=== PATIENT | male | born 1950 | race Hispanic/Latino ===

== ENCOUNTER 2018-02-21 11:18 | Day surgery (SDC) | payer MEDICARE ==
[2018-02-20 16:13] VITALS: BMI 25.8
[2018-02-21 13:38] LABS: Hemoglobin 13.3 g/dL (14.0-18.0)
[2018-02-21] MEDS ORDERED: Lidocaine 1% w/Epinephrine 1:200K 30 ML VIAL ONE (14:34)
[2018-02-21] MEDS ORDERED: Bacitracin Zinc Ointment 30 gm TUBE ONE (14:34)
[2018-02-21] MEDS ORDERED: Fentanyl 100 MCG/2 ML VIAL ONE (14:46)
[2018-02-21] MEDS ORDERED: Lidocaine 1% PF 5 ML VIAL ONE (16:39)
[2018-02-21] MEDS ORDERED: Glycopyrrolate 0.2 MG/ML 5 ML SYRINGE ONE (16:39)
[2018-02-21] MEDS ORDERED: PHENYLEPHRINE-NS 100 MCG/ML 10 ML SYRINGE ONE (16:39)
[2018-02-21] MEDS ORDERED: PROPOFOL 200 MG/20 ML VIAL ONE (16:39)
--- NOTE | 2018-02-21 18:32 | OP ---
DATE OF PROCEDURE: 02/21/2018 PREOPERATIVE DIAGNOSIS: Deep left neck mass. POSTOPERATIVE DIAGNOSES: Deep left neck mass, possible lipoma. PROCEDURE PERFORMED: Excision of deep left neck mass measuring 8 cm. FINDINGS: The patient had a very large left deep neck mass below the platysma muscle along the great vessels and carotid sheath. PROCEDURE IN DETAIL: After consent was obtained, the patient was identified, brought to the operatin g room and placed on the table in supine position. General endotracheal anesthesia was obtained. Th e patient was positioned for surgery. The neck was turned and the patient was positioned, prepped an d draped for surgery. The skin was infiltrated with 1% lidocaine with 1:100,000 epinephrine. We the n incised the skin and carried down through the subcutaneous tissues and the subcutaneous fat. We th en continued our incision down through the platysma. We then encountered a light colored fatty mass which was dissected from the surrounding fascia in the deep space. It was adherent to the inferior a spect of the submandibular gland and the carotid sheath. Dissection of that allowed for isolation of the jugular vein. Hemostasis was then obtained. The wound was closed in layers with Monocryl to cl ose the platysma and a running nylon for the skin. Sterile dressing was applied. The patient was aw akened and taken to recovery where he remained in stable condition prior to discharge home.
--- NOTE | 2018-02-22 06:57 | EKG ---
Test Reason : PREOP Blood Pressure : / mmHG Vent. Rate : 069 BPM Atrial Rate : 069 BPM P-R Int : 128 ms QRS Dur : 092 ms QT Int : 416 ms P-R-T Axes : 071 000 049 degrees QTc Int : 445 ms Normal sinus rhythm Normal ECG When compared with ECG of 29-JAN-2014 15:46, Criteria for Septal infarct are no longer Present Confirmed by BRENDA SHANKS ([id number]) on 02/22/2018 6:57:25 AM Referred By: GARRETT Confirmed By:BRENDA SHANKS
== END 2018-02-21 17:42 | disposition home or self-care (01) ==
LOC: SDC 11:18
PROVIDERS: ATTEND Specialist
PROC: 0JB50ZZ Excision of Left Neck Subcutaneous Tissue and Fascia, Open Approach (ICD-10-PCS; principal; 2018-02-21)
DX: D17.0 Benign lipomatous neoplasm of skin and subcutaneous tissue of head, face and neck (principal); H91.93 Unspecified hearing loss, bilateral; J45.909 Unspecified asthma, uncomplicated; Z87.891 Personal history of nicotine dependence; Z79.84 Long term (current) use of oral hypoglycemic drugs; Z79.899 Other long term (current) drug therapy
CPT/HCPCS: 85014; 85018; 88304; 93005; 93010; J2001; J2704; J3010

== ENCOUNTER 2018-08-20 08:06 | Outpatient (CLI) | payer MEDICARE ==
--- NOTE | 2018-08-20 09:48 | CT ---
CT PULMONARY LUNG SCAN: INDICATIONS: Cancer screening. A 67-year-old male with a history of smoking. COMPARISON: None. FINDINGS: There is moderate centrilobular emphysema. No suspicious pulmonary nodule is evident. No confluent air space opacity is noted. There is nonspecific mildly prominent mediastinal lymph nodes. The larg est is seen within the precarinal region, measuring 0.3 cm. There are mildly prominent lymph nodes w ithin the prevascular region and AP window. There are coronary artery and thoracic aorta calcificati ons. The visualized upper abdomen reveals no acute abnormality. At T11-T12, there is a left paracen tral calcified extraaxial lesion projecting into the spinal canal, causing at least moderate osseous central canal narrowing, best seen on image 102 of the sagittal series and image 204 of the axial ser ies. Findings are suspicious for a large, calcified, herniated disk or possibly a small meningioma. There is multilevel spondylosis of the thoracic spine. IMPRESSION: Lung-RADS category 1-Negative. Recommend annual low dose cancer CT screening evaluation. Category S: Left paracentral extraaxial calcified spinal canal mass at T11-T12, causing moderate rachael tral canal narrowing, which may reflect an extraaxial calcified herniated disk or possibly a small me ningioma. There is coronary artery and thoracic aorta calcifications. There are nonspecific mildly prominent mediastinal lymph nodes. CODE LN POS: [facility]
== END 2018-08-20 08:07 | disposition home or self-care (01) ==
LOC: CT 08:06
PROVIDERS: ATTEND Family Medicine
DX: Z12.2 Encounter for screening for malignant neoplasm of respiratory organs (principal); Z00.00 Encounter for general adult medical examination without abnormal findings; Z87.891 Personal history of nicotine dependence
CPT/HCPCS: G0297

== ENCOUNTER 2018-10-02 08:14 | Outpatient (CLI) | payer MEDICARE ==
--- NOTE | 2018-10-02 11:05 | MRI ---
MRI LUMBAR SPINE NONCONTRAST: DATE: 10/02/2018. HISTORY: A 67-year-old male with R29.989, left lower extremity weakness. Low back pain and left lumbar radicu lopathy. COMPARISON: None. FINDINGS: There are 5 lumbar-type vertebrae. The vertebral body heights are maintained. No major bone marrow signal abnormality. T11-12: Moderate disk space narrowing. A large left paracentral disk-osteophyte complex protrudes f ar into the left side of the spinal canal. It occupies 2/3 of the anteroposterior dimension of the s scotty canal, and occupies approximately 20-40% of the cross-section area of the spinal canal. It has a sharp posterior tip that distorts and displaces the lower portion of the spinal cord. There is no neural foraminal stenosis. T12-L1: The conus medullaris terminates at this level. Essentially normal. L1-2: Mild disk bulge. No central or neural foraminal stenosis. L2-3: Disk bulge. Mild central stenosis. No neural foraminal stenosis. Disk space maintained. L3-4: Mild disk space narrowing. Prominent diffuse disk bulge. Mild bilateral neural foraminal yanci nosis, left greater than right. Mild ligamentum flavum thickening and mild bilateral degenerative fa cet changes. Mild to moderate central spinal canal stenosis. L4-5: Mild to moderate disk space narrowing. Slight degenerative retrolisthesis of L4 on L5. Promi nent diffuse disk bulge. Moderate bilateral degenerative facet changes. Moderate bilateral neural f oraminal stenosis, right worse than left. Moderate central spinal canal stenosis. L5-S1: Bilateral L5 pars interarticularis defects cause a prominent grade I anterolisthesis of L5 on S1. Large diffuse disk bulge. All of these factors result in severe right neural foraminal stenosi s, with chronic impingement and deformation of the exiting right L5 nerve root, moderate to severe le ft neural foraminal stenosis, also with chronic deformation and impingement on the exiting left L5 ne rve root, and moderate central spinal canal stenosis. Severe narrowing of the posterior aspect of th e disk space. IMPRESSION: 1. Bilateral L5 spondylolysis causing prominent grade I spondylolisthesis at L5-S1, and high-grade b ilateral neural foraminal stenosis with chronic impingement on the bilateral exiting L5 nerve roots. 2. Large focal osteophyte or disk-osteophyte complex at T11-12 chronically impinging on the lower sp inal cord. TRACIE Owusu POS: [facility]
== END 2018-10-02 08:15 | disposition home or self-care (01) ==
LOC: BICMRI 08:14
PROVIDERS: ATTEND Physician Assistant
DX: R29.2 Abnormal reflex (principal); R29.898 Other symptoms and signs involving the musculoskeletal system; M47.816 Spondylosis without myelopathy or radiculopathy, lumbar region; M48.061 Spinal stenosis, lumbar region without neurogenic claudication; M43.17 Spondylolisthesis, lumbosacral region
CPT/HCPCS: 72148

== ENCOUNTER 2018-10-23 13:09 | Outpatient (CLI) | payer MEDICARE ==
--- NOTE | 2018-10-23 14:41 | RAD ---
LUMBAR SPINE THREE VIEWS INCLUDING FLEXION AND EXTENSION VIEWS: 10/23/2018 HISTORY: Lumbar radiculopathy. Low back pain with pain radiating down the left leg for one year. COMPARISON: MRI lumbar spine from 10/02/2018. FINDINGS: There are five [id number] lumbar type vertebral bodies, based on sagittal imaging. As noted on the prior MRI examination, there is grade 1 anterolisthesis of L5 on S1, with bilateral pars defects present. There are degenerative changes seen in the lumbar spine, with multilevel osteophytes presen t, and there is narrowing of the intervertebral disk spaces in the lower lumbar spine. There is trac e retrolisthesis of L4 on L5. There is no abnormal translational motion seen between the flexion and extension views of the lumbar spine. Vascular calcification is seen in the abdominal aorta. IMPRESSION: Degenerative changes of the lumbar spine, greatest in the lower lumbar spine. There is evidence of s pondylolisthesis at the lumbosacral junction with slight retrolisthesis of L4 on L5. POS: [facility]
== END 2018-10-23 13:10 | disposition home or self-care (01) ==
LOC: TBSIIMAG 13:09
PROVIDERS: ATTEND Neurological Surgery
DX: M47.26 Other spondylosis with radiculopathy, lumbar region (principal); M43.17 Spondylolisthesis, lumbosacral region; M43.16 Spondylolisthesis, lumbar region
CPT/HCPCS: 72100

== ENCOUNTER 2018-11-26 05:39 | Inpatient (IN) | payer MEDICARE ==
[2018-11-25 17:29] VITALS: BMI 26.6
--- NOTE | 2018-11-26 01:59 | HP ---
HISTORY OF PRESENT ILLNESS: Mr. Lynn is a 68-year-old male, who reports to our office for evaluation of low back pain with left lower extremity pain. The patient states over the last few days he had pain in the left gluteus on and off. The patient felt that it was due to having his wallet in his left side back pocket; however, moving it back and forth does not seem to make any difference. The patient walks with a limp on the left side. He states that he has pain down the back side of his thighs to his knees, lateral aspect of his lower extremities, and into his foot and baby toe. The patient states that he has not been sleeping well. He turned repeatedly overnight. He was taking aspirin and Tylenol. Denies physical therapy or injections. REVIEW OF SYSTEMS: A 10-point review of systems has been completed and is negative other than stated in the above HPI. PAST MEDICAL HISTORY: Asthma, diabetes, hypertension, and hyperlipidemia. PAST SURGICAL HISTORY: Excision of left neck mass and . FAMILY HISTORY: Father was at 93 years. Mother was at 91 years, diagnosed with diabetes. Siblings are alive, diagnosed with diabetes. Six brothers, 3 sisters. SOCIAL HISTORY: The patient is a former smoker, quit smoking in 2009, smoked approximately a pack a day for 30 plus years. Alcohol, he uses occasional alcohol. Denies any drug use. He does concrete and sands work. Drinks caffeine. MEDICATIONS: 1. Metformin. 2. Atorvastatin. 3. Lisinopril. 4. Glimepiride. 5. Tramadol. ALLERGIES: NO KNOWN DRUG ALLERGIES. PHYSICAL EXAMINATION: CONSTITUTIONAL: Well appearing, well nourished, alert. NEUROLOGIC: Mental status; oriented to time, place, and person. Normal attention span and concentration. Speech is spontaneous and fluent. Comprehension is intact, content appropriate. Normal fund of knowledge. Cranial nerves; pupils are equal, round, and reactive to light. Extraocular movements are intact. Hearing is intact. Cranial nerves II through XII are grossly intact. Motor; muscle strength normal in lower extremities. Muscle tone normal and bulk normal in lower extremities. A 5/5 bilateral strength in IP, KF, DF, PF; 3/5 left knee extension, 4/5 left EHL, S1 radiculopathy. Positive single leg raise on the right. Rotation of bilateral hips normal. Tender to palpation of left piriformis. Deep tendon reflexes; no patellar reflex on left. Sensory; light touch intact. Gait and station; sit to stand slow. Left leg limp with gait. RESPIRATIONS: Normal work of breathing on room air. CARDIAC: Regular rate and rhythm. Normal S1 and S2. IMAGING: MRI of the lumbar spine, T11-T12 large osteophyte protrudes into the spinal canal, L3-L4 and L4-L5 stenosis. L5-S1 listhesis. ASSESSMENT AND PLAN: Lumbar spinal stenosis with neurogenic claudication, spondylolisthesis of the lumbar region, and lumbar radiculopathy. Dr. Diaz has offered surgery. The patient states that he understands the risks of surgery, and is willing to proceed. Job ID: [id number]
[2018-11-26] MEDS ORDERED: CEFAZOLIN 2 GM/50 ML BAG ONE (06:05)
[2018-11-26] MEDS ORDERED: Thrombin 5000 UNITS/5 ML VIAL ONE (06:17)
[2018-11-26] MEDS ORDERED: Sodium Chloride 0.9% 30 ML ONE (06:17)
[2018-11-26] MEDS ORDERED: Bupivacaine HCl 0.5%/Epinephrine 1:200,000/PF 30 ml Vial ONE (06:17)
[2018-11-26] MEDS ORDERED: Fentanyl 100 MCG/2 ML VIAL ONE ×4 (06:19→16:54)
[2018-11-26 06:26] LABS: #Basophils 0.1 thou/uL (0.0-0.2); #Eosinphils 0.7 thou/uL (0.0-0.7); #Lymphocytes 2.7 thou/uL (1.20-3.40); #Monocytes 0.8 thou/uL (0.11-0.59); %Basophils 1.1 % (0.0-1.0); %Eosinophils 7.7 % (0.0-10.0); %Lymphocytes 29.1 % (21.0-51.0); %Monocytes 8.3 % (0.0-10.0); %Neutrophils 53.8 % (42.0-75.0); Mean Corpuscular HGB CONC 35.1 g/dL (32.0-36.0); Mean Corpuscular Hemoglobin 32.3 pg (27.0-31.0); Mean Corpuscular Volume 91.9 fL (78.0-98.0); Mean Platelet Volume 7.1 fL (7.4-10.4); Platelet Count 366 thou/uL (130-400); RBC Distribution Width 11.8 % (11.5-14.5); Red Blood Cell (RBC) Count 4.64 mill/uL (4.70-6.10); White Blood Cell (WBC) Count 9.3 thou/uL (4.8-10.8)
[2018-11-26 06:31] LABS: PTT 27.7 SEC (22.9-36.1); Prothrombin Time 13.1 SEC (12.0-14.7)
[2018-11-26] MEDS ORDERED: PHENYLEPHRINE-NS 100 MCG/ML 10 ML SYRINGE ONE ×7 (08:08→14:34)
[2018-11-26] MEDS ORDERED: Rocuronium Bromide 50 MG/5 ML VIAL ONE (11:24)
[2018-11-26] MEDS ORDERED: diphenhydrAMINE 25 MG CAP PO PRN (14:08)
[2018-11-26] MEDS ORDERED: Milk Of Magnesia 30 ML UDCUP PO PRN (14:08)
[2018-11-26] MEDS ORDERED: Acetaminophen 325 MG TAB PO PRN (14:08)
[2018-11-26] MEDS ORDERED: Bisacodyl 10 MG SUPP PR PRN (14:08)
[2018-11-26] MEDS ORDERED: Promethazine 25 MG TAB PO PRN (14:08)
[2018-11-26] MEDS ORDERED: Promethazine HCl 25 MG/ML VIAL IM PRN ×2 (14:08→14:23)
[2018-11-26] MEDS ORDERED: Ondansetron PF 4 MG/2 ML Vial IVP PRN (14:08)
[2018-11-26] MEDS ORDERED: tiZANidine HCl 4 MG TAB PO PRN (14:08)
[2018-11-26] MEDS ORDERED: Morphine 4 MG/ML VIAL SLOW IVP PRN (14:08)
[2018-11-26] MEDS ORDERED: Acetaminophen 650 MG Suppository PR PRN (14:08)
[2018-11-26] MEDS ORDERED: diphenhydrAMINE 50 MG/ML VIAL IVP PRN (14:08)
[2018-11-26] MEDS ORDERED: Mag-Al 1200 mg/1200 mg/30 ML UDCUP PO PRN (14:08)
[2018-11-26] MEDS ORDERED: Acetaminophen/Codeine 30-300mg Tablet PO PRN (14:08)
[2018-11-26] MEDS ORDERED: Morphine 2 MG/ML SYRINGE SLOW IVP PRN (14:08)
[2018-11-26] MEDS ORDERED: traMADol HCl 50 MG TAB PO PRN (14:13)
[2018-11-26] MEDS ORDERED: CEFAZOLIN/Water 2 GM/20 ML SYRINGE SLOW IVP SCH (14:15)
[2018-11-26] MEDS ORDERED: Promethazine HCl 25 MG/ML VIAL SLOW IVP PRN (14:23)
[2018-11-26] MEDS ORDERED: Ondansetron HCl/PF 4 MG/2 ML Vial IVP PRN (14:23)
[2018-11-26] MEDS ORDERED: Glycopyrrolate 0.2 MG/ML 5 ML SYRINGE ONE (14:34)
[2018-11-26] MEDS ORDERED: ePHEDrine/0.9% NaCl/PF SYRINGE 50 mg/10 ml ONE (14:34)
[2018-11-26] MEDS ORDERED: Lidocaine 1% PF 5 ML VIAL ONE (14:34)
[2018-11-26] MEDS ORDERED: Rocuronium Bromide 10 MG/ML (10ML VIAL) ONE (14:34)
[2018-11-26] MEDS ORDERED: Ondansetron PF 4 MG/2 ML Vial ONE (14:34)
[2018-11-26] MEDS ORDERED: Ketorolac Tromethamine 30 MG/ML VIAL ONE (14:34)
[2018-11-26] MEDS ORDERED: PROPOFOL 200 MG/20 ML VIAL ONE (14:34)
[2018-11-26] MEDS ORDERED: CEFAZOLIN 2 GM/50 ML-DEXTROSE 2 GM in Premix Bag 1 BAG IVPB SCH (15:00)
[2018-11-26] MEDS: metFORMIN 500 MG TAB PO SCH (18:31)
[2018-11-26] MEDS: Sodium Chloride 0.9% 1,000 ML IV SCH (18:36)
--- NOTE | 2018-11-26 19:51 | OP ---
DATE OF PROCEDURE: 11/26/2018 WELDING MACHINE OPERATOR/TENDER: Stefania Osborn PA-C. PREOPERATIVE INDICATION: Treat pain and prevent neurological deterioration. PREOPERATIVE DIAGNOSES: Gait instability, left leg weakness, intervertebral disk herniation at T11-T12 with cord compression, lateral recess stenosis at L4-L5, and spondylolisthesis with severe foraminal disease at L5-S1. POSTOPERATIVE DIAGNOSES: Gait instability, left leg weakness, intervertebral disk herniation at T11-T12 with cord compression, lateral recess stenosis at L4-L5, and spondylolisthesis with severe foraminal disease at L5-S1. PROCEDURES PERFORMED: 1. Partial costotransversectomy, partial pediculectomy, and left-sided microdiskectomy at T11-T12. 2. Decompressive laminectomy, medial facetectomy, foraminotomy at L4-L5; removal of abnormal posterior elements including complete facetectomy at L5-S1 (Walls type procedure); transforaminal lumbar interbody arthrodesis and placement of intervertebral biomechanical device at L5-S1; pedicle screw and beatrice instrumentation at L5-S1; posterolateral arthrodesis at L5 and S1; local morselized autograft, morselized allograft; and operating microscope. PREOPERATIVE MEDICATION: Ancef 2 g IV. DRAINS: Zero. DRAIN TYPE: None. DESCRIPTION OF PROCEDURE: The patient was brought to the operating room. General endotracheal anesthesia was induced. The patient was positioned prone on the Petar frame with the appropriate padding for the chest and hips. A lateral fluoro radiograph was used to plan 2 incisions, one would give us access to T11-T12 and the other from L4 through S1. The thoracolumbar skin was sterilely prepped and draped. We started with our thoracic incision, opened with a 10 blade knife. We placed a self-retaining retractor and dissected carefully to the thoracodorsal fascia. We incised the fascia in the midline and reflected the paraspinal muscles off the spinous process, lamina, and transverse process of T11 and T12. A self-retaining retractor was placed and a lateral fluoro radiograph was used to confirm the level upon which we were operating. We then brought a high-speed drill into the field. We drilled away a portion of the transverse process and head of the rib at T11-T12 and at T10-T11. We then thinned the lamina and removed the spinous process and performed 2/3 laminectomy, opening from just right of the midline all the way over to the pars interarticularis on the left. We performed medial facetectomy at both levels. We drilled away the medial portion of the pedicle at T12. We took an angled approach onto the dura to the disk space. Even in the far lateral recess, there was a protruding portion of the disk that was calcified, but more medially became markedly more prominent. We carefully used a high-speed drill, starting lateral to the dura and drilled away the interspace. We drilled at least 3 to 5 mm into the vertebral bodies and worked our way medially under the osteophyte. Using the pushing curette, we reduced portions of these calcified disk into the drilled bone and removed them in a piecemeal fashion laterally onto the dura. Finally, we could visualize the medial portion of the calcified disk. We drilled into more medial to it and then used a 1 mm Kerrison rongeur to amputate the calcified disk. This was densely adherent to the dura and as we swept it laterally, we noticed that it was adhered to the arachnoid as well. A bleb of arachnoid was seen from the ventral surface of the dura. We removed the disk and there was a small amount of CSF leak. We placed a Gelfoam in the lateral recess, two small pledgets of Gelfoam controlled the CSF. We irrigated copiously with bacitracin irrigation. We used DuraSeal tissue sealant to reinforce Gelfoam across the entire area of exposed dura. We then closed our thoracic incision in layers in a watertight fashion. For this portion of the procedure, the operative microscope and microsurgical techniques were used for the drilling and removal of the disk. We opened the second incision. We opened our planned lumbar incision with a 10 blade knife and controlled bleeding with bipolar cautery. We dissected sharply to the thoracodorsal fascia, incised in the midline, and reflected the paraspinal muscles off the spinous process and lamina of L4, L5 and S1. Self-retaining retractor was placed. A lateral fluoro radiograph confirmed the levels upon which we were operating. We then carried our dissection over the facet joint at L4-L5 and L5-S1 to identify the sacral ala and the transverse processes of L5 on both sides. We irrigated with bacitracin irrigation. We began our decompression, but noticed the posterior elements of L5 were completely loose. These were removed in large pieces including complete facetectomies on both sides. At L4, we performed a laminectomy with a 3 mm Kerrison rongeur, and we widened our laminectomy defect at the interspace. We undermined both lateral recesses by performing medial facetectomies until we could identify the L5 nerve roots, and we performed foraminotomies over these roots. In similar fashion, we performed medial facetectomies and foraminotomies over the S1 roots. We irrigated with bacitracin irrigation. We then brought a high-speed drill into the field and drilled off the superior articular process of L5 above the pedicles. We worked away down in the foramen until we identified the L5 nerve roots lateral to the spinal canal, and we removed disk material, osteophytes, and drilled away bone until these nerve roots were no longer compressed at all. A Quinones ball could pass out the foramen into the paraspinal space without impingement on either side. We irrigated once more with bacitracin irrigation and turned our attention to arthrodesis. Through the foramen on the left side, we accessed the intervertebral space. We incised it with an 11 blade knife and we removed disk contents using curettes and rongeurs. We prepared the endplates for grafting with angled curette with upward and downward facing curettes and loop curettes. We measured the height of the interspace with a rectangular shaped bone rasp to 10 mm. A 10 mm PEEK intervertebral graft was brought into the field. This intervertebral device was loaded with demineralized bone matrix and morselized autograft. The autograft was obtained from a laminectomy bone, which was carefully cleaned of its soft tissue attachments, morselized, and added to DBM as our fusion substrate. The PEEK device was advanced into the lumbosacral interspace to the appropriate depth under radiographic guidance. We turned our attention to pedicle screw instrumentation. Using bony anatomic landmarks, palpation of the medial portion of the pedicles, and a lateral fluoro radiograph as our guide, we chose entry points for pedicle screws at L5 and S1. We advanced a bone awl through the pedicles into the vertebral bodies. We tapped each trajectory and then probed the trajectories. We found them completely encased in bone. We placed 6.5 mm diameter pedicle screws at L5 and S1 bilaterally. A 360-degree image set was generated with our isocentric C-arm, confirming adequate positioning of our instrumentation. We then irrigated with bacitracin irrigation. Rods were dropped down into the screw heads and caps tightened over the rods. We used gentle compression across the interspace to keep the interbody graft in place. We ensured each foramen was still widely patent. Using a torque/counter-torque mechanism, we ensured adequate tightness. We decorticated the transverse process of L5 and the sacral ala on either side. Over the decorticated bone, we left demineralized bone matrix and morselized autograft as our posterolateral fusion substrate. We irrigated the center of the wound one more time with bacitracin irrigation. We infused local anesthetic in the paraspinal muscles and we closed in anatomical layers. We treated the wound with vancomycin powder before closing. This is clean case, no contamination. Job ID: [id number]
[2018-11-26] MEDS: CEFAZOLIN 2 GM/50 ML-DEXTROSE 2 GM in Premix Bag 1 BAG IVPB SCH (20:34)
[2018-11-27] MEDS: Acetaminophen/Codeine 30-300mg Tablet PO PRN ×4 (01:01→21:53)
[2018-11-27] MEDS: CEFAZOLIN 2 GM/50 ML-DEXTROSE 2 GM in Premix Bag 1 BAG IVPB SCH (04:40)
[2018-11-27] MEDS: Sodium Chloride 0.9% 1,000 ML IV SCH ×2 (04:40→18:01)
[2018-11-27] MEDS: Tamsulosin HCl 0.4 MG CAP PO SCH (04:44)
[2018-11-27] MEDS: metFORMIN 500 MG TAB PO SCH ×2 (07:50→18:16)
[2018-11-27] MEDS: Glimepiride 2 MG TAB PO SCH (07:51)
[2018-11-27] MEDS: Atorvastatin Calcium 40 MG TAB PO SCH (07:51)
[2018-11-27] MEDS: Lisinopril 10 MG TAB PO SCH (07:51)
--- NOTE | 2018-11-27 09:10 | PRG ---
DATE OF SERVICE: 11/27/2018 Mr. Lynn is one day out from a calcified thoracic diskectomy as well as a lumbar and lumbosacral decompression with lumbosacral fusion. Mr. Lynn's operative intervention was notable for calcified thoracic disk eroded through the dura, so we noticed a ventral CSF leak and this was reinforced with Gel-Foam and DuraSeal. Thankfully, Mr. Lynn has good neurologic function in his lower extremities. He has a bit of numbness in the S1 distribution down the left leg, but we used copious amounts of local anesthetic around those nerves while manipulating for his fusion. There were no fevers recorded overnight and his other vital signs are stable. There is excellent motor function in both lower extremities. There is decreased sensation and paresthesias in the S1 greater than L5 distribution in the left leg, but nothing more proximal. My plan for Mr. Lynn is to consult Medicine for diabetes management, consult Physical Therapy, consider inpatient rehabilitation placement, and get him fitted with at least an LSO brace. Job ID: [id number]
[2018-11-28] MEDS: Tamsulosin HCl 0.4 MG CAP PO SCH (05:19)
[2018-11-28] MEDS: Acetaminophen/Codeine 30-300mg Tablet PO PRN ×3 (05:19→14:29)
[2018-11-28] MEDS: Sodium Chloride 0.9% 1,000 ML IV SCH (06:51)
--- NOTE | 2018-11-28 08:44 | PRG ---
DATE OF SERVICE: 11/28/2018 NEUROSURGERY PROGRESS NOTE Mr. Lynn is 2 days out from a thoracic and lumbar decompression with a lumbosacral fusion. He had a reasonable day yesterday. He was fitted for his brace, which he is still wearing in bed currently. He got up and walked in the hallways. He was able to void spontaneously. He is very happy with his progress thus far and he tells me his leg pain is better than before surgery. There is still some residual numbness what seems to be an L5 or S1 distribution, but even that is getting better. There is no recorded fever on his vital signs. Blood pressures have been in the 120s to 130s. On examination, there is good strength in both lower extremities. There is some residual numbness in left S1 greater than L5. This morning, his blood glucose is 142. I believe Mr. Lynn is safe for discharge. He will need a bit more practice with Physical Therapy this morning, getting into and out of bed. He does not have to wear his brace when he is in bed. He can put his brace on when he is up. We will make arrangements for him to be seen in the office in 2 weeks. We went over wound care and home going activity restrictions. He verbalized his understanding. Job ID: [id number]
[2018-11-28] MEDS: metFORMIN 500 MG TAB PO SCH (09:04)
[2018-11-28] MEDS: Glimepiride 2 MG TAB PO SCH (09:04)
[2018-11-28] MEDS: Lisinopril 10 MG TAB PO SCH (09:04)
[2018-11-28] MEDS: Atorvastatin Calcium 40 MG TAB PO SCH (09:04)
[2018-11-28 11:48] VITALS: BP 142/64; TEMP 98.3
--- NOTE | 2018-11-29 20:27 | EKG ---
Test Reason : PREOP Blood Pressure : / mmHG Vent. Rate : 068 BPM Atrial Rate : 068 BPM P-R Int : 142 ms QRS Dur : 088 ms QT Int : 420 ms P-R-T Axes : 079 017 048 degrees QTc Int : 446 ms Normal sinus rhythm Normal ECG When compared with ECG of 21-FEB-2018 13:00, No significant change was found Confirmed by Anais JONAS ([id number]) on 11/29/2018 8:27:43 PM Referred By: MOON Confirmed By:Anais JONAS
== END 2018-11-28 15:30 | disposition home or self-care (01) | DRG 460 ==
LOC: SURG A 05:39 → 3SE 18:16
PROVIDERS: ADMIT Neurological Surgery; ATTEND Neurological Surgery
PROC: 0SG30AJ Fusion of Lumbosacral Joint with Interbody Fusion Device, Posterior Approach, Anterior Column, Open Approach (ICD-10-PCS; principal; 2018-11-26)
PROC: 0PB10ZZ Excision of 1 to 2 Ribs, Open Approach (ICD-10-PCS; 2018-11-26)
PROC: 0RB90ZZ Excision of Thoracic Vertebral Disc, Open Approach (ICD-10-PCS; 2018-11-26)
PROC: 01N80ZZ Release Thoracic Nerve, Open Approach (ICD-10-PCS; 2018-11-26)
PROC: 00QT0ZZ Repair Spinal Meninges, Open Approach (ICD-10-PCS; 2018-11-26)
PROC: 01NB0ZZ Release Lumbar Nerve, Open Approach (ICD-10-PCS; 2018-11-26)
PROC: 0SB40ZZ Excision of Lumbosacral Disc, Open Approach (ICD-10-PCS; 2018-11-26)
PROC: 00NY0ZZ Release Lumbar Spinal Cord, Open Approach (ICD-10-PCS; 2018-11-26)
DX: M48.062 Spinal stenosis, lumbar region with neurogenic claudication (principal); G96.0 Cerebrospinal fluid leak; M43.16 Spondylolisthesis, lumbar region; J45.909 Unspecified asthma, uncomplicated; E11.9 Type 2 diabetes mellitus without complications; I10 Essential (primary) hypertension; E78.5 Hyperlipidemia, unspecified; M51.14 Intervertebral disc disorders with radiculopathy, thoracic region; Z79.84 Long term (current) use of oral hypoglycemic drugs; Z87.891 Personal history of nicotine dependence; Z83.3 Family history of diabetes mellitus
CPT/HCPCS: 36416; 76000; 85025; 85610; 85730; 93005; 93010; C1713; C1768; J0131; J0670; J1885; J2001; J2405; J2704; J3010; J3370; J3490

== ENCOUNTER 2019-01-10 13:27 | Outpatient (CLI) | payer MEDICARE ==
--- NOTE | 2019-01-10 15:17 | RAD ---
LUMBAR SPINE SERIES TWO VIEWS: HISTORY: Back pain. COMPARISON: 10/23/2018 FINDINGS: Vertebral bodies are normal in height. Prominent osteophytic changes are seen. Mild disk narrowing at L3-L4. Moderate disk narrowing at L4-L5. More superior disk narrowing at L5-S1. The patient has had bilateral pedicle screws placed at the L5-S1 level, with laminectomy change. Markers of disk im plants are seen within the confines of the disk level and along the anterior-most margin of the disk level. There is a spondylolisthesis of approximately 10 mm. IMPRESSION: Arthritic changes and postoperative changes of the spine. POS: [facility]
== END 2019-01-10 13:28 | disposition home or self-care (01) ==
LOC: TBSIIMAG 13:27
PROVIDERS: ATTEND Neurological Surgery
DX: M47.26 Other spondylosis with radiculopathy, lumbar region (principal); M43.16 Spondylolisthesis, lumbar region
CPT/HCPCS: 72100

== ENCOUNTER 2019-03-06 09:24 | Outpatient (CLI) | payer MEDICARE ==
--- NOTE | 2019-03-06 09:55 | RAD ---
RIGHT FOOT RADIOGRAPHS 3 VIEWS: DATE: 03/06/2019. PROVIDED CLINICAL HISTORY: Right foot pain. FINDINGS: No evidence for fracture or other acute osseous abnormality. Alignment appears anatomic. Joint spac es appear preserved. Small plantar calcaneal enthesophyte. IMPRESSION: No evidence for an acute osseous abnormality or significant arthropathy. POS: [facility]
== END 2019-03-06 09:25 | disposition home or self-care (01) ==
LOC: BICRAD 09:24
PROVIDERS: ATTEND Family Medicine
DX: M79.671 Pain in right foot (principal)

== ENCOUNTER 2019-08-21 08:50 | Outpatient (CLI) | payer MEDICARE ==
--- NOTE | 2019-08-21 11:07 | ULT ---
ABDOMINAL AORTIC ULTRASOUND: HISTORY: Abdominal aortic aneurysm screening. FINDINGS: Real-time imaging of the abdominal aorta shows normal caliber aorta. The proximal portion of the aor ta was not visualized due to bowel gas; however, the mid portion of the aorta measured 1.9 and the di stal ileum 0.8 cm. Iliacs were normal in caliber. IMPRESSION: No evidence of aortic aneurysm. Very proximal aorta is not visualized. POS: [facility]
--- NOTE | 2019-08-21 11:14 | CT ---
CT CHEST WITHOUT CONTRAST: Axial tomograms obtained through the chest following a low-dose screening protocol. COMPARISON: Comparison is made to low-dose screening chest CT 08/20/2018. INDICATION: Long history of nicotine dependent/smoking. FINDINGS: The lungs show hyperexpansion consistent with COPD. Mild stranding. Early sensor lobar emphysematou s changes in the lung bases. No evidence of pulmonary mass or nodule. No evidence of infiltrate or effusion. There is an enlarged mediastinal lymph node seen in the paratracheal region measuring 1.6 cm which is stable from the prior study. There are other nonspecific mediastinal lymph nodes which are also sta ble. Osseous structures unremarkable with degenerative spine changes. The patient has undergone perez inectomy at T11-T12 on the left since the prior study. IMPRESSION: Lung RADS 2. Recommend continued annual low-dose screening CT. POS: [facility]
== END 2019-08-21 08:51 | disposition home or self-care (01) ==
LOC: CT 08:50
PROVIDERS: ATTEND Family Medicine
DX: Z13.6 Encounter for screening for cardiovascular disorders (principal); Z87.891 Personal history of nicotine dependence
CPT/HCPCS: 76775; G0297

== ENCOUNTER 2020-10-27 09:37 | Outpatient (CLI) | payer MEDICARE ==
--- NOTE | 2020-10-27 10:45 | CT ---
CT pulmonary lung scan without IV contrast INDICATION: Lung cancer screening protocol; 70-year-old male with history of being a former smoker; q uit 12 years ago and smoked approximately 1 pack per day or less.personal history of smoking COMPARISON: Prior CT pulmonary lung scan dated August 21, 2019 and August 20, 2018 FINDINGS: LUNGS: Nodules\mass: There is a new subpleural pulmonary nodule involving the right posterior lower lobe on image 91 of series 3 measuring 9 mm with an adjacent area of pleural thickening. This may reflect a small focus of rounded atelectasis. There are numerous areas of peripheral subpleural interstitial thickening with associated bronchiectasis that has developed in the interim suspicious for sequela of prior pneumonia with resultant fibrosis. There are prominent areas of fibrosis with traction bronc hiectasis involving the right lower lobe, right upper lobe and right middle lobe. Overall the findings are suspicious for sequela of healed fibrotic change from Covid pneumonia. Emphysema: There is scattered moderate emphysema Additional findings: There is a stable 1.3 cm pretracheal lymph node. No pathologically enlarged lymp h nodes are evident. Mediastinum: There are coronary artery and thoracic aortic calcifications. Upper abdomen: There is a 7 cm cyst within superior pole the right kidney. Osseous structures: There is postsurgical change of a left hemilaminectomy at T11. Right renal. IMPRESSION: Lung-RADS Category 3: Probably Benign-6-[address] of the Thorax follow up recommended. There are numerous subpleural reticular opacities within both lungs suspicious for areas of interstit ial fibrosis with associated traction bronchiectasis. This is suspicious for sequela of prior Covid pneumonia. There are more prominent areas of new fibrosis and traction bronchiectasis within the righ t lower lobe, right middle lobe and left upper lobe. There is a small 9 mm subpleural pulmonary nodule within the right lower lobe with adjacent pleural thickening which may reflect an area of roun ded atelectasis or rounded pneumonia. Follow-up noncontrast CT of the thorax in 6-8 weeks is recommended to document stability of the findings. Category S: Moderate emphysema; stable mediastinal lymph node; right renal cysts; postsurgical change of a left hemilaminectomy at T11. Category C: Not applicable.
== END 2020-10-27 09:38 | disposition home or self-care (01) ==
LOC: BICCT 09:37
PROVIDERS: ATTEND Family Medicine
DX: Z12.2 Encounter for screening for malignant neoplasm of respiratory organs (principal); Z87.891 Personal history of nicotine dependence; J43.9 Emphysema, unspecified; N28.1 Cyst of kidney, acquired; J84.10 Pulmonary fibrosis, unspecified; J47.9 Bronchiectasis, uncomplicated; Z98.890 Other specified postprocedural states
CPT/HCPCS: G0297

== ENCOUNTER 2020-12-21 08:52 | Outpatient (CLI) | payer MEDICARE ==
--- NOTE | 2020-12-21 11:46 | CT ---
CT CHEST WITHOUT CONTRAST: HISTORY: Abnormal CT chest of 10/27/2020, followup exam. COMPARISON: 10/27/2020. FINDINGS: A few enlarged mediastinal lymph nodes are again seen. There are vascular calcifications without nii dence of aneurysmal dilatation of the thoracic aorta. No pleural or pericardial effusions are identi fied. The parenchymal changes demonstrate interval improvement since the last exam. There is linear scarri ng in the medial aspect of the left upper lobe. The focal patchy density in the peripheral aspect of the left upper lobe shows interval improvement. The subsegmental atelectatic change in the lateral segment of the lingula has also improved. Changes in the lung bases demonstrate interval improvement with mild residual scarring. No suspicious masses or nodules are seen. There are degenerative changes in the spine. Upper abdominal tomograms demonstrate fatty infiltratio n of the liver and a right renal cyst. IMPRESSION: Interval improvement since 10/27/2020. A followup exam is recommended in 12 months. POS: OFF
== END 2020-12-21 08:53 | disposition home or self-care (01) ==
LOC: BICCT 08:52
PROVIDERS: ATTEND Family Medicine
DX: R93.89 Abnormal findings on diagnostic imaging of other specified body structures (principal)
CPT/HCPCS: 71250

== ENCOUNTER 2021-05-06 13:14 | Outpatient (CLI) | payer MEDICARE ==
[~2021-05-06 13:14] MED LIST: Magnevist 469MG/ML 20 ML VIAL ONE
== END 2021-05-06 13:15 | disposition home or self-care (01) ==
LOC: MRI 13:14
PROVIDERS: ATTEND Nurse Practitioner Family
DX: R20.0 Anesthesia of skin (principal); R29.898 Other symptoms and signs involving the musculoskeletal system
CPT/HCPCS: 70553; 82565

== ENCOUNTER 2021-05-06 16:26 | Inpatient (IN) | payer MEDICARE ==
[2021-05-06] MEDS ORDERED: Aspirin Chewable 81 MG TAB ONE ×3 (18:04→20:16)
[2021-05-06 19:22] LABS: #Eosinphils 0.2 thou/uL (0.0-0.7); #Lymphocytes 3.2 thou/uL (1.20-3.40); #Monocytes 0.7 thou/uL (0.11-0.59); #Neutrophils 5.8 thou/uL (1.40-6.50); %Basophils 0.4 % (0.0-1.0); %Eosinophils 2.2 % (0.0-10.0); %Lymphocytes 31.9 % (21.0-51.0); %Monocytes 6.7 % (0.0-10.0); %Neutrophils 58.8 % (42.0-75.0); Hemoglobin 15.1 g/dL (14.0-18.0); Mean Corpuscular HGB CONC 35.8 g/dL (32.0-36.0); Mean Corpuscular Hemoglobin 33.9 pg (27.0-31.0); Mean Corpuscular Volume 94.8 fL (78.0-98.0); Mean Platelet Volume 7.5 fL (7.4-10.4); Platelet Count 278 thou/uL (130-400); Red Blood Cell (RBC) Count 4.45 mill/uL (4.70-6.10); White Blood Cell (WBC) Count 9.9 thou/uL (4.8-10.8)
[2021-05-06 19:35] LABS: PTT 27.5 sec (22.9-36.1); Prothrombin Time 13.5 sec (12.0-14.7)
[2021-05-06 19:57] LABS: ALT (SGPT) 51 U/L (8-55); AST (SGOT) 31 U/L (5-34); Albumin 4.3 g/dL (3.4-4.8); Alkaline Phosphatase 60 U/L (40-110); Anion Gap 14 mmol/L (10-20); BUN (Urea Nitrogen) 19 mg/dL (8.4-25.7); Bilirubin, Total 0.3 mg/dL (0.2-1.2); Calc. Creatinine Clearance 0 mL/min (70-130); Calcium 9.7 mg/dL (7.8-10.44); Carbon Dioxide 24 mmol/L (23-31); Chloride 101 mmol/L (98-107); Globulin 3.9 g/dL (2.4-3.5); Glucose 303 mg/dL (80-115); Protein, Total 8.2 g/dL (5.8-8.1); Sodium 134 mmol/L (136-145)
[2021-05-06] MEDS ORDERED: Ondansetron PF 4 MG/2 ML Vial IVP PRN (22:20)
[2021-05-06] MEDS ORDERED: Acetaminophen 325 MG TAB PO PRN (22:20)
[2021-05-06] MEDS ORDERED: Ondansetron ODT 4 MG TAB PO PRN (22:20)
[2021-05-06] MEDS ORDERED: Labetalol HCl 100 MG/20 ML VIAL SLOW IVP PRN (22:33)
[2021-05-06] MEDS ORDERED: hydrALAZINE 20 MG/ML VIAL SLOW IVP PRN (22:33)
[2021-05-06] MEDS ORDERED: HumaLOG 300 UNITS/3 ML VIAL SC PRN (23:21)
[2021-05-06] MEDS ORDERED: Dextrose 5% in Water 1,000 ML IV PRN (23:21)
[2021-05-06] MEDS ORDERED: Dextrose 50% Abboject 50 ML SYRINGE SLOW IVP PRN (23:21)
[2021-05-07 00:59] VITALS: BMI 25.2
[2021-05-07 04:49] LABS: #Eosinphils 0.4 thou/uL (0.0-0.7); #Lymphocytes 2.9 thou/uL (1.20-3.40); #Monocytes 0.7 thou/uL (0.11-0.59); #Neutrophils 4.3 thou/uL (1.40-6.50); %Basophils 0.4 % (0.0-1.0); %Eosinophils 5.1 % (0.0-10.0); %Lymphocytes 34.5 % (21.0-51.0); %Monocytes 8.4 % (0.0-10.0); %Neutrophils 51.6 % (42.0-75.0); Hemoglobin 14.6 g/dL (14.0-18.0); Mean Corpuscular HGB CONC 34.5 g/dL (32.0-36.0); Mean Corpuscular Hemoglobin 32.9 pg (27.0-31.0); Mean Corpuscular Volume 95.4 fL (78.0-98.0); Mean Platelet Volume 7.5 fL (7.4-10.4); Platelet Count 258 thou/uL (130-400); RBC Distribution Width 11.9 % (11.5-14.5); Red Blood Cell (RBC) Count 4.43 mill/uL (4.70-6.10); White Blood Cell (WBC) Count 8.4 thou/uL (4.8-10.8)
[2021-05-07 05:19] LABS: Anion Gap 11 mmol/L (10-20); BUN (Urea Nitrogen) 18 mg/dL (8.4-25.7); Calc. Creatinine Clearance 74 mL/min (70-130); Calcium 9.2 mg/dL (7.8-10.44); Carbon Dioxide 25 mmol/L (23-31); Cardiac Risk 5.1 (Less than 4.5); Chloride 101 mmol/L (98-107); Cholesterol 179 mg/dl (< 200 Desired); Glucose 263 mg/dL (80-115); HDL Cholesterol 35 mg/dL (>60 Neg Risk); LDL Cholesterol, Calculated 102 mg/dL; Potassium 4.3 mmol/L (3.5-5.1); Sodium 133 mmol/L (136-145); Triglycerides 209 mg/dL (Less than 150)
[2021-05-07] MEDS: HumaLOG 300 UNITS/3 ML VIAL SC PRN ×3 (06:02→17:36)
[2021-05-07] MEDS: Enoxaparin Sodium 40 MG/0.4 ML SYRINGE SC SCH (08:49)
[2021-05-07] MEDS ORDERED: Iopamidol-370 76% 500 ML 1 ML ONE (11:24)
[2021-05-07] MEDS ORDERED: Aspirin 325 MG TAB PO SCH (13:15)
[2021-05-07 13:33] LABS: Hemoglobin A1c 8.7 % (4.0-6.0)
[2021-05-07] MEDS: Glimepiride 1 MG TAB PO SCH (17:34)
[2021-05-07] MEDS: Carvedilol 3.125 MG TAB PO SCH (17:34)
[2021-05-07] MEDS ORDERED: Atorvastatin Calcium 40 MG TAB PO SCH (21:00)
[2021-05-08] MEDS: HumaLOG 300 UNITS/3 ML VIAL SC PRN ×2 (06:29→12:36)
[2021-05-08] MEDS: Carvedilol 3.125 MG TAB PO SCH ×2 (09:00→16:57)
[2021-05-08] MEDS ORDERED: Lisinopril 20 MG TAB PO SCH (09:00)
[2021-05-08] MEDS ORDERED: Aspirin Chewable 81 MG TAB PO SCH (09:00)
[2021-05-08] MEDS: Enoxaparin Sodium 40 MG/0.4 ML SYRINGE SC SCH (09:00)
[2021-05-08 15:50] VITALS: BP 114/70; TEMP 97.6
[2021-05-08] MEDS: Glimepiride 1 MG TAB PO SCH (16:57)
== END 2021-05-08 18:30 | disposition home or self-care (01) | DRG 65 ==
LOC: ERS 16:26 → 2SE 19:14 → OBSVTOIN 05-07 01:05
PROVIDERS: ADMIT Student in an Organized Health Care Education/Training Program; ATTEND Student in an Organized Health Care Education/Training Program
DX: I63.9 Cerebral infarction, unspecified (principal); E87.1 Hypo-osmolality and hyponatremia; G81.91 Hemiplegia, unspecified affecting right dominant side; J45.909 Unspecified asthma, uncomplicated; I10 Essential (primary) hypertension; E78.00 Pure hypercholesterolemia, unspecified; E11.9 Type 2 diabetes mellitus without complications; Z79.84 Long term (current) use of oral hypoglycemic drugs; Z79.899 Other long term (current) drug therapy; Z98.890 Other specified postprocedural states; Z87.891 Personal history of nicotine dependence
CPT/HCPCS: 36415; 36416; 70496; 70498; 80048; 80053; 80061; 83036; 84484; 85025; 85610; 85730; 93005; 93306; G0378; J1650; J1815; Q9967

== ENCOUNTER 2022-03-06 08:08 | Outpatient (CLI) | payer MEDICARE | END 2022-03-06 08:09 | disposition home or self-care (01) | LOC: BICCT 08:08 | PROVIDERS: ATTEND Family Medicine | DX: Z12.2 Encounter for screening for malignant neoplasm of respiratory organs (principal); Z87.891 Personal history of nicotine dependence | CPT/HCPCS: 71271 ==